=== PATIENT | female | born 1975 | race Caucasian/White ===

== ENCOUNTER 2020-06-16 04:20 | Day surgery (SDC) | payer OTHER ==
[2020-06-13 14:59] VITALS: BMI 31.6
[2020-06-16] MEDS ORDERED: MIDAZOLAM HCL 2 MG/2 ML SINGLE DOSE VIAL ONE (10:24)
[2020-06-16 11:09] VITALS: TEMP 97.7
[2020-06-16 12:17] VITALS: BP 132/69; PULSE 86
== END 2020-06-16 12:05 | disposition home or self-care (01) ==
LOC: JASU-ENDO 04:20
PROVIDERS: ATTEND Internal Medicine Gastroenterology
PROC: 0DB78ZX Excision of Stomach, Pylorus, Via Natural or Artificial Opening Endoscopic, Diagnostic (ICD-10-PCS; 2020-06-16)
PROC: 0DB98ZX Excision of Duodenum, Via Natural or Artificial Opening Endoscopic, Diagnostic (ICD-10-PCS; principal; 2020-06-16 09:30)
DX: K29.00 Acute gastritis without bleeding (principal); K44.9 Diaphragmatic hernia without obstruction or gangrene; K21.9 Gastro-esophageal reflux disease without esophagitis; R63.4 Abnormal weight loss; R10.11 Right upper quadrant pain
CPT/HCPCS: 81025; 88305-TC; 88342-TC

== ENCOUNTER 2022-12-13 15:30 | Emergency (ER) | payer BC, OTHER ==
[2022-12-13 15:47] VITALS: BP 139/82; PULSE 96; RESP 17; TEMP 98.3; BMI 29.8
[2022-12-13 17:52] LABS: BASO % 0.5 % (0-2.0); HEMATOCRIT 41.1 % (32.4-45.2); HEMOGLOBIN 14.1 GM/dL (10.7-15.3); LYMPH % 22.4 % (8-40); MCH 27.6 pg (25.7-33.7); MCHC 34.3 g/dl (32.0-36.0); MEAN CELL VOLUME 80.6 fl (80-96); MONO % 6.9 % (3.8-10.2); NEUT % 65.2 % (42.8-82.8); PLATELET COUNT 218 10^3/uL (134-434); WHITE BLOOD COUNT 8.7 K/mm3 (4.0-10.0)
[2022-12-13 17:55] LABS: INR 0.97 (0.83-1.09); PROTHROMBIN TIME (PATIENT) 11.3 SEC (9.7-13.0)
[2022-12-13 17:57] LABS: ACTIVATED PTT 30.9 SECONDS (25.2-36.5)
[2022-12-13 17:58] LABS: CALCIUM 8.6 mg/dL (8.5-10.1)
[2022-12-13 17:59] LABS: ALBUMIN 3.8 g/dl (3.4-5.0); BLOOD UREA NITROGEN 11.5 mg/dL (7-18)
[2022-12-13 18:02] LABS: CREATININE 0.8 mg/dL (0.55-1.3)
[2022-12-13 18:04] LABS: BILIRUBIN,TOTAL 0.4 mg/dL (0.2-1)
== END 2022-12-13 20:35 | disposition home or self-care (01) ==
LOC: JER 15:30
DX: M79.661 Pain in right lower leg (principal); R22.41 Localized swelling, mass and lump, right lower limb; I82.4Y1 Acute embolism and thrombosis of unspecified deep veins of right proximal lower extremity
CPT/HCPCS: 36415; 80053; 84703; 85025; 85610; 85730; 93971-TC; 99284-25

== ENCOUNTER 2023-03-26 09:42 | Inpatient (IN) | payer BC ==
[2023-03-26 09:47] VITALS: BMI 28.2
[2023-03-26] MEDS ORDERED: METOCLOPRAMIDE HCL INJECTION 10 MG/2 ML VIAL ONE (10:19)
[2023-03-26] MEDS ORDERED: LABETALOL HCL 100 MG TABLET (FP) ONE ×2 (10:19→21:15)
[2023-03-26] MEDS: METOCLOPRAMIDE HCL INJECTION 10 MG/2 ML VIAL IVPUSH ONE (11:11)
[2023-03-26] MEDS: SODIUM CHLORIDE 0.9% 500 ML INFUS.BAG IV ONE (11:11)
[2023-03-26] MEDS: LABETALOL HCL 100 MG TABLET (FP) PO ONE (11:11)
[2023-03-26 11:25] LABS: BASO % 0.8 % (0-2.0); HEMATOCRIT 42.8 % (32.4-45.2); HEMOGLOBIN 14.4 GM/dL (10.7-15.3); MCHC 33.6 g/dl (32.0-36.0); MEAN CELL VOLUME 83.4 fl (80-96); MEAN PLT VOLUME 8.4 fl (7.5-11.1); MONO % 5.5 % (3.8-10.2); NEUT % 61.7 % (42.8-82.8); PLATELET COUNT 210 10^3/uL (134-434); RBC 5.13 M/mm3 (3.60-5.2); RDW 14.2 % (11.6-15.6); WHITE BLOOD COUNT 6.6 K/mm3 (4.0-10.0)
[2023-03-26 11:30] LABS: CHLORIDE 105 mmol/L (98-107); POTASSIUM 3.8 mmol/L (3.5-5.1); SODIUM 139 mmol/L (136-145)
[2023-03-26 11:32] LABS: ALBUMIN 3.6 g/dl (3.4-5.0); ANION GAP 5 mmol/L (4-13); BLOOD UREA NITROGEN 14.8 mg/dL (7-18); CALCIUM 9.6 mg/dL (8.5-10.1); CO2 28 mmol/L (21-32); GLUCOSE,RANDOM 94 mg/dL (74-106)
[2023-03-26 11:35] LABS: CREATININE 0.9 mg/dL (0.55-1.3)
[2023-03-26 11:36] LABS: SGOT/AST 15 U/L (15-37); SGPT/ALT 17 U/L (13-61)
[2023-03-26 11:37] LABS: BILIRUBIN,TOTAL 0.3 mg/dL (0.2-1); TOT PROT 6.8 g/dl (6.4-8.2)
[2023-03-26 11:38] LABS: ALK PHOS 65 U/L (45-117)
[2023-03-26] MEDS ORDERED: ACETAMINOPHEN 500 MG TABLET (FP) ONE ×2 (11:56→21:05)
[2023-03-26] MEDS: ACETAMINOPHEN 500 MG TABLET (FP) PO ONE (11:59)
[2023-03-26 12:49] LABS: INR 1.16 (0.83-1.09); PROTHROMBIN TIME (PATIENT) 13.4 SEC (9.7-13.0)
[2023-03-26 12:52] LABS: ACTIVATED PTT 35.5 SECONDS (25.2-36.5)
[2023-03-26 16:37] LABS: PH,URINE 7.5 (5.0-8.0); URINE APPEARANCE CLEAR; URINE BILIRUBIN NEGATIVE (NEGATIVE); URINE COLOR YELLOW; URINE GLUCOSE (UA) NEGATIVE (NEGATIVE); URINE KETONE NEGATIVE (NEGATIVE); URINE LEUK ESTERASE NEGATIVE (NEGATIVE); URINE NITRITE NEGATIVE (NEGATIVE); URINE PROTEIN NEGATIVE (NEGATIVE); URINE UROBILINOGEN 0.2 mg/dL (0.2-1.0)
[2023-03-26] MEDS ORDERED: ASPIRIN 325 MG TABLET ONE (17:11)
[2023-03-26] MEDS: ASPIRIN 325 MG TABLET PO ONE (17:14)
[2023-03-26] MEDS ORDERED: HEPARIN NA (PORCINE) 5,000 UNITS/ML 1ML VIAL IVPUSH PRN (18:04)
[2023-03-26] MEDS ORDERED: NITROGLYCERIN SUBLINGUAL 1/150 0.4 MG TAB SL PRN (18:19)
[2023-03-26] MEDS: HEPARIN INFUSION - 25,000 UNITS/500 ML INFUS.BAG IVPB SCH (18:20)
[2023-03-26] MEDS: HEPARIN - 25,000 UNIT in SODIUM CHLORIDE 495 ML IV SCH (18:23)
[2023-03-26] MEDS ORDERED: predniSONE 20 MG TABLET (UD) ONE (21:03)
[2023-03-26] MEDS: predniSONE 20 MG TABLET (UD) PO ONE (21:09)
[2023-03-26] MEDS: ACETAMINOPHEN 500 MG TABLET (FP) PO PRN (21:09)
[2023-03-26] MEDS ORDERED: PANTOPRAZOLE 20 MG TABLET PO ONE (21:14)
[2023-03-26] MEDS: PANTOPRAZOLE 40 MG TABLET PO SCH (22:25)
[2023-03-26] MEDS: MELATONIN 5 MG TABLETS PO PRN (22:26)
[2023-03-26] MEDS: LABETALOL HCL 100 MG TABLET (FP) PO SCH (22:26)
[2023-03-27 08:17] LABS: BASO % 0.3 % (0-2.0); EOS % 0.1 % (0-4.5); HEMATOCRIT 42.2 % (32.4-45.2); HEMOGLOBIN 14.3 GM/dL (10.7-15.3); LYMPH % 10.8 % (8-40); MCH 28.1 pg (25.7-33.7); MCHC 33.8 g/dl (32.0-36.0); MEAN CELL VOLUME 83.2 fl (80-96); NEUT % 87.8 % (42.8-82.8); PLATELET COUNT 223 10^3/uL (134-434); RBC 5.07 M/mm3 (3.60-5.2); RDW 14.3 % (11.6-15.6); WHITE BLOOD COUNT 7.4 K/mm3 (4.0-10.0)
[2023-03-27 08:29] LABS: POTASSIUM 4.1 mmol/L (3.5-5.1)
[2023-03-27 08:39] LABS: CALCIUM 9.4 mg/dL (8.5-10.1)
[2023-03-27 08:40] LABS: BLOOD UREA NITROGEN 13.4 mg/dL (7-18)
[2023-03-27 08:43] LABS: CREATININE 0.8 mg/dL (0.55-1.3)
[2023-03-27] MEDS: ASPIRIN COATED 81 MG TABLET.EC PO SCH (10:02)
[2023-03-27] MEDS: EZETIMIBE 10 MG TABLET (FP) PO SCH (10:02)
[2023-03-27] MEDS: DULoxetine HCL 30 MG CAPSULE.DR PO SCH (10:02)
[2023-03-27] MEDS: MONTELUKAST NA 10 MG TABLET PO SCH (10:02)
[2023-03-27] MEDS: ATORVASTATIN CA 40 MG TABLET (FP) PO SCH (21:46)
[2023-03-28 07:32] LABS: BASO % 0.5 % (0-2.0); EOS % 3.1 % (0-4.5); HEMATOCRIT 41.9 % (32.4-45.2); HEMOGLOBIN 14.4 GM/dL (10.7-15.3); LYMPH % 42.5 % (8-40); MCH 28.3 pg (25.7-33.7); MCHC 34.4 g/dl (32.0-36.0); MEAN CELL VOLUME 82.2 fl (80-96); MEAN PLT VOLUME 8.3 fl (7.5-11.1); MONO % 6.1 % (3.8-10.2); NEUT % 47.8 % (42.8-82.8); PLATELET COUNT 232 10^3/uL (134-434); RBC 5.09 M/mm3 (3.60-5.2); RDW 14.5 % (11.6-15.6); WHITE BLOOD COUNT 6.8 K/mm3 (4.0-10.0)
[2023-03-28 07:56] LABS: POTASSIUM 3.5 mmol/L (3.5-5.1)
[2023-03-28 08:06] LABS: CALCIUM 9.2 mg/dL (8.5-10.1)
[2023-03-28 08:08] LABS: ALBUMIN 3.9 g/dl (3.4-5.0); BLOOD UREA NITROGEN 14.8 mg/dL (7-18)
[2023-03-28 08:09] LABS: BILIRUBIN,TOTAL 0.4 mg/dL (0.2-1); CREATININE 0.9 mg/dL (0.55-1.3); TOT PROT 6.8 g/dl (6.4-8.2)
[2023-03-28] MEDS: ACETAMINOPHEN 1000 MG/100 ML BAG IVPB ONE (14:53)
[2023-03-28] MEDS: ONDANSETRON 4 MG/2 ML VIAL IVPUSH ONE (18:20)
[2023-03-29] MEDS: ACETAMINOPHEN 1000 MG/100 ML BAG IVPB ONE (05:40)
[2023-03-29 07:32] LABS: POTASSIUM 3.8 mmol/L (3.5-5.1)
[2023-03-29] MEDS: HEPARIN NA (PORCINE) 5,000 UNITS/ML 1ML VIAL IVPUSH PRN (07:32)
[2023-03-29 07:33] LABS: BASO % 0.2 % (0-2.0); EOS % 0.3 % (0-4.5); HEMATOCRIT 43.1 % (32.4-45.2); LYMPH % 7.6 % (8-40); MCH 28.6 pg (25.7-33.7); MCHC 34.8 g/dl (32.0-36.0); MEAN PLT VOLUME 8.6 fl (7.5-11.1); MONO % 2.7 % (3.8-10.2); NEUT % 89.2 % (42.8-82.8); PLATELET COUNT 205 10^3/uL (134-434); RBC 5.26 M/mm3 (3.60-5.2); RDW 14.1 % (11.6-15.6); WHITE BLOOD COUNT 6.2 K/mm3 (4.0-10.0)
[2023-03-29 07:47] LABS: CALCIUM 9.4 mg/dL (8.5-10.1)
[2023-03-29 07:48] LABS: ALBUMIN 3.6 g/dl (3.4-5.0); BLOOD UREA NITROGEN 17.5 mg/dL (7-18)
[2023-03-29 07:51] LABS: CREATININE 0.8 mg/dL (0.55-1.3)
[2023-03-29 07:52] LABS: BILIRUBIN,TOTAL 0.6 mg/dL (0.2-1)
[2023-03-29 07:53] LABS: TOT PROT 6.8 g/dl (6.4-8.2)
[2023-03-29] MEDS: ENOXAPARIN NA (PORCINE) 80 MG/0.8 ML DISP.SYRIN SQ SCH (10:01)
[2023-03-29] MEDS: ACETAMINOPHEN 1000 MG/100 ML BAG IVPB PRN (12:27)
[2023-03-29] MEDS: MAGNESIUM 1GM/D5W - 1 GM/100 ML IVPB IVPB ONE (21:38)
[2023-03-30 07:26] LABS: BASO % 0.7 % (0-2.0); EOS % 3.9 % (0-4.5); HEMATOCRIT 41.9 % (32.4-45.2); LYMPH % 25.3 % (8-40); MCH 27.8 pg (25.7-33.7); MCHC 33.5 g/dl (32.0-36.0); MEAN PLT VOLUME 8.7 fl (7.5-11.1); MONO % 7.9 % (3.8-10.2); NEUT % 62.2 % (42.8-82.8); PLATELET COUNT 191 10^3/uL (134-434); RBC 5.06 M/mm3 (3.60-5.2); WHITE BLOOD COUNT 4.1 K/mm3 (4.0-10.0)
[2023-03-30 07:36] LABS: POTASSIUM 3.4 mmol/L (3.5-5.1)
[2023-03-30 07:44] LABS: BLOOD UREA NITROGEN 13.2 mg/dL (7-18)
[2023-03-30 07:46] LABS: BILIRUBIN,TOTAL 0.4 mg/dL (0.2-1); TOT PROT 6.3 g/dl (6.4-8.2)
[2023-03-30 07:47] LABS: ALBUMIN 3.5 g/dl (3.4-5.0); CALCIUM 8.9 mg/dL (8.5-10.1); CREATININE 0.8 mg/dL (0.55-1.3); MAGNESIUM 2.4 mg/dL (1.8-2.4); PHOSPHOROUS 4.8 mg/dL (2.5-4.9)
[2023-03-30] MEDS: KCL 10 MEQ IVPB 10 MEQ/100 ML INFUS.BAG IVPB SCH (08:32)
[2023-03-30 09:28] VITALS: BP 137/72; RESP 18; TEMP 98.8
[2023-03-30 10:10] VITALS: PULSE 60
== END 2023-03-30 10:30 | disposition short-term general hospital (02) | DRG 282 ==
LOC: JER 09:42 → JERBED 18:10 → J4W 21:55
PROVIDERS: ADMIT Internal Medicine; ATTEND Internal Medicine
DX: I21.4 Non-ST elevation (NSTEMI) myocardial infarction (principal); J44.9 Chronic obstructive pulmonary disease, unspecified; I10 Essential (primary) hypertension; G43.909 Migraine, unspecified, not intractable, without status migrainosus; E78.5 Hyperlipidemia, unspecified; K21.9 Gastro-esophageal reflux disease without esophagitis; Z86.718 Personal history of other venous thrombosis and embolism
CPT/HCPCS: 36415; 70450-TC; 71046-TC-FY; 76830-TC; 80048; 80053; 80061; 81003; 82010; 82550; 82553; 83735; 84100; 84443; 84484; 84702; 84703; 85025; 85379; 85610; 85651; 85730; 86140; 86850; 86900; 86901; 87086; 87635; 93005; 93010; 93306-TC; 99285-25; J0131; J1644

== ENCOUNTER 2023-12-08 13:18 | Emergency (ER) | payer BC, OTHER ==
[2023-12-08 13:30] VITALS: BP 122/86; PULSE 94; RESP 20; TEMP 98.6; BMI 30.4
[2023-12-08 15:26] LABS: BASO % 0.5 % (0-2.0); EOS % 4.1 % (0-4.5); HEMATOCRIT 43.8 % (32.4-45.2); HEMOGLOBIN 14.9 GM/dL (10.7-15.3); LYMPH % 19.7 % (8-40); MCH 28.3 pg (25.7-33.7); MEAN CELL VOLUME 83.2 fl (80-96); MONO % 7.8 % (3.8-10.2); NEUT % 67.9 % (42.8-82.8); PLATELET COUNT 215 10^3/uL (134-434); RBC 5.27 M/mm3 (3.60-5.2); RDW 14.7 % (11.6-15.6); WHITE BLOOD COUNT 7.6 K/mm3 (4.0-10.0)
[2023-12-08] MEDS ORDERED: ACETAMINOPHEN INJECTION 100 ML ONE (15:31)
[2023-12-08 15:32] LABS: INR 1.3 (0.83-1.09); PROTHROMBIN TIME (PATIENT) 14.8 SEC (9.7-13.0)
[2023-12-08] MEDS ORDERED: MAG HYDROX/AL HYDROX/SIMETH 30 ML UNIT-DOSE CUP ONE (15:32)
[2023-12-08] MEDS ORDERED: ONDANSETRON 4 MG/2 ML VIAL ONE (15:32)
[2023-12-08] MEDS ORDERED: FAMOTIDINE 20 MG/50 ML IVPB 20 MG/50 ML MG IVPB ONE (15:32)
[2023-12-08 15:34] LABS: URINE APPEARANCE CLOUDY; URINE BILIRUBIN NEGATIVE (NEGATIVE); URINE COLOR DK YELLOW; URINE GLUCOSE (UA) NEGATIVE (NEGATIVE); URINE KETONE 1+ (NEGATIVE); URINE LEUK ESTERASE NEGATIVE (NEGATIVE); URINE NITRITE NEGATIVE (NEGATIVE); URINE PROTEIN TRACE (NEGATIVE); URINE UROBILINOGEN 0.2 mg/dL (0.2-1.0)
[2023-12-08 15:35] LABS: ACTIVATED PTT 36.4 SECONDS (25.2-36.5)
[2023-12-08 15:47] LABS: HCG,QUALITATIVE URINE Negative
[2023-12-08] MEDS: MAG HYDROX/AL HYDROX/SIMETH -MYLANTA- ORAL SUSPENSION PO ONE (15:49)
[2023-12-08] MEDS: ONDANSETRON 4 MG/2 ML VIAL IVPUSH ONE (15:50)
[2023-12-08] MEDS: ACETAMINOPHEN 1000 MG/100 ML BAG IVPB ONE (15:50)
[2023-12-08] MEDS: SODIUM CHLORIDE 0.9% 500 ML INFUS.BAG IV ONE (15:50)
[2023-12-08 15:56] LABS: ALBUMIN 4.4 g/dl (3.4-5.0); BLOOD UREA NITROGEN 18.9 mg/dL (7-18); CALCIUM 10.1 mg/dL (8.5-10.1)
[2023-12-08 16:00] LABS: BILIRUBIN,TOTAL 0.7 mg/dL (0.2-1)
[2023-12-08 16:01] LABS: TOT PROT 7.7 g/dl (6.4-8.2)
[2023-12-08] MEDS: FAMOTIDINE 20 MG/50 ML IVPB 20 MG/50 ML MG IVPB ONE (16:19)
== END 2023-12-08 17:31 | disposition home or self-care (01) ==
LOC: JER 13:18
PROC: 3E033GC Introduction of Other Therapeutic Substance into Peripheral Vein, Percutaneous Approach (ICD-10-PCS; principal; 2023-12-08)
PROC: 3E033GC Introduction of Other Therapeutic Substance into Peripheral Vein, Percutaneous Approach (ICD-10-PCS; 2023-12-08)
PROC: 3E033NZ Introduction of Analgesics, Hypnotics, Sedatives into Peripheral Vein, Percutaneous Approach (ICD-10-PCS; 2023-12-08)
DX: R11.2 Nausea with vomiting, unspecified (principal); R10.11 Right upper quadrant pain; R19.7 Diarrhea, unspecified
CPT/HCPCS: 36415; 71045-TC-FY; 76705-TC; 80053; 81003; 83690; 83735; 84484; 84703; 85025; 85610; 85730; 86850; 86900; 86901; 87086; 93005; 93010; 99285-25; J0131